=== PATIENT | female | born 1975 | race Caucasian/White ===

== ENCOUNTER 2024-12-16 12:08 | Emergency (ER) | payer OTHER ==
[~2024-12-16] VITALS: Ht 170.2 cm; Wt 95.4 kg
[2024-12-16 12:56] LABS: GLUCOMETER DEV NAME(LOC) ERT.6; GLUCOSE,POINT OF CARE 105 MG/DL (70-110)
[2024-12-16 13:15] VITALS: TEMP 97.3
[2024-12-16] MEDS: GABAPENTIN 300 MG CAPSULE PO ONE (16:06)
[2024-12-16] MEDS ORDERED: HYDR-4062 PO (16:35)
[2024-12-16 17:15] VITALS: BP 117/61; PULSE 71; RESP 18; O2SAT 96
== END 2024-12-16 17:56 | disposition home or self-care (01) ==
LOC: EMS 12:16
DX: S93.602A Unspecified sprain of left foot, initial encounter (principal); S00.83XA Contusion of other part of head, initial encounter; S60.414A Abrasion of right ring finger, initial encounter; E11.9 Type 2 diabetes mellitus without complications; M79.7 Fibromyalgia; W10.9XXA Fall (on) (from) unspecified stairs and steps, initial encounter; Y93.89 Activity, other specified; Y92.89 Other specified places as the place of occurrence of the external cause; Y99.8 Other external cause status
CPT/HCPCS: 82962; 99283